=== PATIENT | male | born 1990 | race Caucasian/White ===

== ENCOUNTER 2021-03-15 14:04 | Emergency (ER) | payer SELFPAY ==
[2021-03-15 16:51] LABS: Absolute Lymphocytes (CBC) 0.8 K/uL (0.7-4.9); Basophils % 0.8 % (0-1.3); Hematocrit 47.7 % (39.6-49.0); Lymphocytes % 10.8 % (15.3-44.8); MPV 7.3 fL (7.6-11.3); RBC Red Blood Cell Count 5.23 M/uL (4.33-5.43)
[2021-03-15 17:08] LABS: ALT/SGPT 49 U/L (12-78); AST/SGOT 29 U/L (15-37); Albumin 4.3 g/dL (3.4-5.0); Alkaline Phosphatase 85 U/L (45-117); BUN Blood Urea Nitrogen 10 mg/dL (7-18); Bicarbonate 30 mmol/L (21-32); Bilirubin Direct < 0.1 mg/dL (0-0.2); Bilirubin Total 0.4 mg/dL (0.2-1.0); Glucose Level 95 mg/dL (74-106); Lipase 144 U/L (73-393); Protein, Total 8.5 g/dL (6.4-8.2); Sodium Level 136 mmol/L (136-145)
[2021-03-15 17:43] LABS: Urine Blood Trace-intact (Negative); Urine Glucose Negative (Negative); Urine Protein Negative (Negative); Urine Specific Gravity 1.025 (1.005-1.030); Urine pH 5.5 (5.0-7.0)
[2021-03-15] MEDS ORDERED: NA CHLORIDE 0.9% 1,000 ML ONE (17:51)
--- NOTE | 2021-03-15 18:50 | RAD REPORT ---
EXAM DESCRIPTION: CT - Abdomen Pelvis W Contrast - 03/15/2021 6:33 pm CLINICAL HISTORY: Abdominal pain COMPARISON: none. TECHNIQUE: Computed axial tomography of the abdomen pelvis was obtained. 100 cc Isovue-300 was admin istered intravenously. Oral contrast was not requested which limits evaluation of bowel. All CT scans are performed using dose optimization technique as appropriate and may include automated exposure control or mA/KV adjustment according to patient size. FINDINGS: The liver, spleen, pancreas, adrenal and right kidney appear unremarkable. 1 millimeters calculus left kidney. No hydronephrosis There is no evidence of diverticulitis. The wall of portions of transverse, descending and sigmoid colon are mildly to moderately thickened. This likely indicates a colitis IMPRESSION: Mild to moderate colitis
--- NOTE | 2021-03-15 18:53 | EDPHYS ---
Physician Documentation [facility] Name: Humble Jordan Age: 30 yrs Sex: Male : 1990 Arrival Date: 03/15/2021 Time: 14:06 Bed 24 Private MD: ED Physician Raulito Collier HPI: 03/15 17:16 This 30 yrs old Male presents to ER via Ambulatory with complaints of kb Abdominal Pain, Diarrhea. 17:16 The patient presents with abdominal pain that is diffuse. Onset: The symptoms/episode kb began/occurred 6 day(s) ago. The symptoms do not radiate. Associated signs and symptoms: Pertinent positives: diarrhea, Pertinent negatives: nausea and vomiting, fever. The symptoms are described as crampy. Modifying factors: The symptoms are alleviated by nothing, the symptoms are aggravated by nothing. Severity of pain: At its worst the pain was moderate in the emergency department the pain is unchanged. The patient has not experienced similar symptoms in the past. The patient has not recently seen a physician. Pt reports abd cramping and diarrhea for 6 days. . Historical: - Allergies: 14:15 No Known Allergies; ll1 - PMHx: 14:15 Asthma; ll1 - PSHx: 14:15 knee sx; ll1 - Immunization history:: Client reports having NOT received the Covid vaccine. Flu vaccine is not up to date. - Social history:: Smoking status: Patient reports the use of cigarette tobacco products, smokes one pack cigarettes per day. ROS: 17:15 Constitutional: Negative for fever, chills, and weight loss, Cardiovascular: Negative kb for chest pain, palpitations, and edema, Respiratory: Negative for shortness of breath, cough, wheezing, and pleuritic chest pain, MS/Extremity: Negative for injury and deformity, Skin: Negative for injury, rash, and discoloration, Neuro: Negative for headache, weakness, numbness, tingling, and seizure. 17:15 Abdomen/GI: Positive for abdominal pain, Negative for diarrhea. Exam: 17:15 Constitutional: This is a well developed, well nourished patient who is awake, alert, kb and in no acute distress. Head/Face: Normocephalic, atraumatic. Cardiovascular: Regular rate and rhythm with a normal S1 and S2. No gallops, murmurs, or rubs. No pulse deficits. Respiratory: Respirations even and unlabored. No increased work of breathing, no retractions or nasal flaring. Skin: Warm, dry with normal turgor. Normal color. MS/ Extremity: Pulses equal, no cyanosis. Neurovascular intact. Full, normal range of motion. Neuro: Awake and alert, GCS 15, oriented to person, place, time, and situation. Moves all extremities. Normal gait. 17:15 Abdomen/GI: Inspection: abdomen appears normal, Bowel sounds: normal, Palpation: soft, in all quadrants, mild abdominal tenderness, in the right lower quadrant and left lower quadrant. Vital Signs: 14:13 BP 130 / 94; Pulse 87; Resp 17; Temp 98.3; Pulse Ox 97% ; Weight 52.16 kg; Height 5 ft. ll1 5 in. (165.10 cm); Pain 5/10; 14:13 Body Mass Index 19.14 (52.16 kg, 165.10 cm) ll1 MDM: 15:55 Patient medically screened. kb 17:13 Data reviewed: vital signs, nurses notes. Data interpreted: Pulse oximetry: on room air kb is 97 %. Interpretation: normal. Counseling: I had a detailed discussion with the patient and/or guardian regarding: the historical points, exam findings, and any diagnostic results supporting the discharge/admit diagnosis, lab results, the need for outpatient follow up, a family practitioner, to return to the emergency department if symptoms worsen or persist or if there are any questions or concerns that arise at home. ED course: After discussing diagnostic results. Pt requests CT scan. 03/15 16:58 Order name: CBC with Automated Diff; Complete Time: 16:59 EDMS 03/15 17:08 Order name: Basic Metabolic Panel; Complete Time: 17:08 EDMS 03/15 16:24 Order name: IV Saline Lock; Complete Time: 16:34 kb 03/15 16:24 Order name: Labs collected and sent; Complete Time: 16:34 kb 03/15 17:08 Order name: Liver (Hepatic) Function; Complete Time: 17:08 EDMS 03/15 17:08 Order name: Lipase; Complete Time: 17:08 EDMS 03/15 17:12 Order name: CT Abd/Pelvis - IV Contrast Only; Complete Time: 18:51 kb 03/15 17:40 Order name: Urine Dipstick-Ancillary (obtain specimen); Complete Time: 17:40 03/15 17:43 Order name: Urine Dipstick-Ancillary; Complete Time: 17:44 EDMS Administered Medications: Discontinued: NS 0.9% 1000 ml IV at 100 ml/hr once 17:40 Drug: NS 0.9% 1000 ml Route: IV; Rate: 100 ml/hr; Site: right antecubital; ss 19:09 Follow up: IV Status: IV converted to saline lock Disposition: 03/16 07:26 Co-signature as Attending Physician, Raulito Collier MD I agree with the assessment and kdr plan of care. Disposition: 03/15/21 18:53 Discharged to Home. Impression: Left sided colitis. - Condition is Stable. - Discharge Instructions: Abdominal Pain, Adult, Ehid-uh-Ztmy, Colitis. - Prescriptions for Bentyl 20 mg Oral Tablet - take 2 tablet by ORAL route every 6 hours As needed; 40 tablet. Flagyl 500 mg Oral Tablet - take 1 tablet by ORAL route every 8 hours for 10 days; 30 tablet. Zofran 4 mg Oral Tablet - take 1 tablet by ORAL route every 6 hours As needed; 20 tablet. Cipro 500 mg Oral Tablet - take 1 tablet by ORAL route every 12 hours for 10 days; 20 tablet. - Medication Reconciliation Form, Thank You Letter, Antibiotic Education, Prescription Opioid Use form. - Follow up: Emergency Department; When: As needed; Reason: Worsening of condition. Follow up: Private Physician; When: 2 - 3 days; Reason: Recheck today's complaints, Continuance of care, Re-evaluation by your physician. Signatures: Dispatcher [employer] EDWI Brittni Kamara, CATTLE EXAMINER-C CATTLE EXAMINER-CkRaulito Veloz MD MD kdr Smirch, Shelby, DOMINIC RN ss Vamsi Plaza RN RN ll1 Corrections: (The following items were deleted from the chart) 03/15 17:30 17:04 CBC+H.LAB.BRZ ordered. EDMS EDMS 17:31 17:04 BASIC METABOLIC PANEL+C.LAB.BRZ ordered. EDMS EDMS 17:31 17:04 HEPATIC FUNCTION+C.LAB.BRZ ordered. EDMS EDMS 17: 17:04 LIPASE+C.LAB.BRZ ordered. EDMS EDMS 19:08 18:53 03/15/2021 18:53 Discharged to Home. Impression: Left sided colitis. Condition is ss Stable. Forms are Medication Reconciliation Form, Thank You Letter, Antibiotic Education, Prescription Opioid Use. Follow up: Emergency Department; When: As needed; Reason: Worsening of condition. Follow up: Private Physician; When: 2 - 3 days; Reason: Recheck today's complaints, Continuance of care, Re-evaluation by your physician. kb
--- NOTE | 2021-03-15 18:53 | ER ---
Nurse's Notes [facility] Name: Humble Jordan Age: 30 yrs Sex: Male : 1990 Arrival Date: 03/15/2021 Time: 14:06 Bed 24 Private MD: Diagnosis: Left sided colitis Presentation: 03/15 14:13 Chief complaint: Patient states: Diarrhea and abd pain for 6 days. Some nausea at ll1 times. No fever. Coronavirus screen: Client denies travel out of the [place] in the last 14 days. At this time, the client does not indicate any symptoms associated with coronavirus-19. Ebola Screen: Patient denies travel to an Ebola-affected area in the 21 days before illness onset. Initial Sepsis Screen: Does the patient meet any 2 criteria? No. Patient's initial sepsis screen is negative. Does the patient have a suspected source of infection? Yes: Acute abdominal pain. Risk Assessment: Do you want to hurt yourself or someone else? Patient reports no desire to harm self or others. Onset of symptoms was March 20, 2021. 14:13 Method Of Arrival: Ambulatory ll1 14:13 Acuity: ROXANNE 3 ll1 Historical: - Allergies: 14:15 No Known Allergies; ll1 - PMHx: 14:15 Asthma; ll1 - PSHx: 14:15 knee sx; ll1 - Immunization history:: Client reports having NOT received the Covid vaccine. Flu vaccine is not up to date. - Social history:: Smoking status: Patient reports the use of cigarette tobacco products, smokes one pack cigarettes per day. Screenin:36 Abuse screen: Denies threats or abuse. Denies injuries from another. Nutritional iw screening: No deficits noted. Tuberculosis screening: No symptoms or risk factors identified. Fall Risk IV access (20 points). Assessment: 16:36 General: Appears in no apparent distress. Behavior is calm, cooperative. Pain: iw Complains of pain in right lower quadrant and left lower quadrant Pain currently is 0 out of 10 on a pain scale. at worst was 10 out of 10 on a pain scale. Neuro: Level of Consciousness is awake, alert, obeys commands, Oriented to person, place, time, situation, Moves all extremities. Full function. Cardiovascular: Patient's skin is warm and dry. Respiratory: Respiratory effort is even, unlabored, Respiratory pattern is regular, symmetrical. GI: Abdomen is flat, non-distended, Bowel sounds present X 4 quads. Abd is soft X 4 quads Reports lower abdominal pain, diarrhea. Derm: Skin is intact, is healthy with good turgor. Musculoskeletal: Range of motion: intact in all extremities. 17:30 Reassessment: Patient appears in no apparent distress at this time. Patient and/or ss family updated on plan of care and expected duration. Pain level reassessed. Patient is alert, oriented x 3, equal unlabored respirations, skin warm/dry/pink. 18:30 Reassessment: Patient appears in no apparent distress at this time. No changes from previously documented assessment. Vital Signs: 14:13 BP 130 / 94; Pulse 87; Resp 17; Temp 98.3; Pulse Ox 97% ; Weight 52.16 kg; Height 5 ft. ll1 5 in. (165.10 cm); Pain 5/10; 14:13 Body Mass Index 19.14 (52.16 kg, 165.10 cm) ll1 ED Course: 14:06 Patient arrived in ED. ds1 14:13 Arm band placed on. ll1 14:15 Triage completed. ll1 15:55 Brittni Kamara FNP-C is PHCP. kb 15:55 Raulito Collier MD is Attending Physician. kb 15:55 Ten Tejada PA is PHCP. cp 16:06 Jyoti Guerra, DOMINIC is Primary Nurse. ss 16:36 Initial lab(s) drawn, by la, sent to lab. Inserted saline lock: 20 gauge in right iw antecubital area, using aseptic technique. Blood collected. 18:30 Patient has correct armband on for positive identification. Bed in low position. Call ss light in reach. 18:32 CT Abd/Pelvis - IV Contrast Only In Process Unspecified. EDMS 19:04 No provider procedures requiring assistance completed. IV discontinued, intact, ss bleeding controlled, No redness/swelling at site. Pressure dressing applied. Administered Medications: Discontinued: NS 0.9% 1000 ml IV at 100 ml/hr once 17:40 Drug: NS 0.9% 1000 ml Route: IV; Rate: 100 ml/hr; Site: right antecubital; ss 19:09 Follow up: IV Status: IV converted to saline lock Outcome: 18:53 Discharge ordered by . becca 19:04 Discharged to home ambulatory. ss 19:04 Condition: good 19:04 Discharge instructions given to patient, family, Instructed on discharge instructions, follow up and referral plans. medication usage, Demonstrated understanding of instructions, follow-up care, medications, Prescriptions given X 4. 19:08 Patient left the ED. Signatures: Dispatcher [employer] EDMD Brittni Kamara, FOURDRINIER TENDER-C FOURDRINIER TENDER-CkSerenity Marrero ds1 Juliet Styles, DOMINIC RN Jyoti Guerra RN RN ss Ten Tejada, NADIR PA Vamsi Collins, RN RN ll1
[2021-03-15 20:01] VITALS: BP 130/94; TEMP 98.3; O2SAT 97
== END 2021-03-15 19:08 | disposition home or self-care (01) ==
LOC: ER 14:04
DX: K51.50 Left sided colitis without complications (principal); F17.210 Nicotine dependence, cigarettes, uncomplicated
CPT/HCPCS: 36415; 74177; 80048; 80076; 81003; 83690; 85025; 96360; 99284; J7030; Q9967